=== PATIENT | male | born 1955 | race Caucasian/White ===

== ENCOUNTER 2019-11-02 12:42 | Outpatient (CLI) | payer OTHER, SELFPAY ==
--- NOTE | ~2019-11-02 | US_ITS ---
EXAMINATION: US carotid duplex BI DATE: 11/02/2019 13:15 INDICATION: Occlusion and stenosis of unspecified carotid artery. TECHNIQUE: Grayscale, color Doppler, and pulsed Doppler images of the cervical carotid arteries were obtained. The degree of vessel stenosis is placed in one of the following categories: normal, <50%, 5 0-69%, >=70% but less than near-occlusion, near-occlusion, or total occlusion. Note that percent sten osis relative to normal distal artery lumen diameter is indirectly measured from velocity measurement s as described by Froylan, et al. Radiology 2003; 229:340-346. COMPARISON: None. FINDINGS: RIGHT: The right common carotid artery (CCA) peak systolic velocity (PSV) is 87 cm/s. The right internal car otid artery (ICA) PSV is 73 cm/s. The right ICA end-diastolic velocity (EDV) is 14 cm/s. The right IC A/CCA PSV ratio is 0.8. Grayscale and color Doppler images yield an estimate of <50% diameter reducti on from plaque in the ICA. There is antegrade flow in the right vertebral artery. LEFT: The left CCA PSV is 133 cm/s. The left ICA PSV is 73 cm/s. The left ICA EDV is 21 cm/s. The left ICA/ CCA PSV ratio is 0.5. Grayscale and color Doppler images yield an estimate of <50% diameter reduction from plaque in the ICA. There is antegrade flow in the left vertebral artery. IMPRESSION: 1. <50% stenosis in the right internal carotid artery. 2. <50% stenosis in the left internal carotid artery. Reviewed, dictated and finalized at location A.
== END 2019-11-02 12:43 | disposition home or self-care (01) ==
PROVIDERS: PCP Family Medicine; Visit Provider Physician Assistant
DX: I65.23 Occlusion and stenosis of bilateral carotid arteries (principal)
CPT/HCPCS: 93880

== ENCOUNTER 2022-06-21 01:22 | Day surgery (SDC) | payer MEDICARE, SELFPAY ==
[2022-06-07 10:34] VITALS: BMI 28.0
[2022-06-21 08:04] VITALS: BP 131/95; PULSE 91; RESP 20; TEMP 36.3; O2SAT 98; BMI 27.1
[2022-06-21 08:15] LABS: Glucose Point of Care 172 mg/dl (65-105)
[2022-06-21] MEDS: LACTATED RINGERS 1,000 ML 150 ML IV CONT (08:15)
--- NOTE | 2022-06-21 08:39 | WPDANESEPPF ---
Anes - Initial Pre Proc Eval Procedure: Operation Date: 06/21/22 09:00 Proposed Procedures p Screening Colonoscopy - Brandon Ireland MD Date/Time: 06/21/22 08:39 Surgeon: Brandon Ireland MD Pre Op Diagnosis: hx colon polyps, neoplasm screening Patient Data Age: 67 Gender: M Height: 1.75 m Weight: 83.4 kg Last Vital Signs Temp 97.4 F L 06/21/22 08:04 Pulse 91 06/21/22 08:04 Resp 20 06/21/22 08:04 BP 131/95 H 06/21/22 08:04 Pulse Ox 98 06/21/22 08:04 O2 Del Method Room Air 06/21/22 08:04 Allergies Allergy/AdvReac Type Severity Reaction Status Date / Time No Known Allergies Allergy Verified 06/21/22 08:02 Home Medications Medication Instructions Recorded Confirmed Type atenolol 25 mg tablet 25 mg PO DAILY #90 tabs 04/03/22 06/07/22 Rx glipizide 5 mg tablet, extended See Rx Instructions .Route 04/03/22 06/07/22 Rx release 24 hr .COMPLEX #90 tabs losartan 100 1 tablet PO DAILY #90 tabs 04/03/22 06/07/22 Rx mg-hydrochlorothiazide 25 mg tablet empagliflozin 25 mg tablet 25 mg PO QAM #90 tabs 05/17/22 06/07/22 Rx (Jardiance) atorvastatin 10 mg tablet See Rx Instructions .Route 06/10/22 06/21/22 Rx .COMPLEX #90 tabs metformin 1,000 mg tablet See Rx Instructions .Route 06/10/22 06/21/22 Rx .COMPLEX #180 tabs Laboratory Tests 06/21/22 08:12 POC Capillary Glucose 172 mg/dl H mg/dl (65-105) Patient hx anesthesia problems: none Family hx anesthesia problems: none Results Review: All pre-operative results and documents have been reviewed as part of the pre-operative evaluation. [facility] Past Medical History Medical History Diabetes GERD (gastroesophageal reflux disease) History of colon polyps History of colonic polyps HLD (hyperlipidemia) Hypertension Family History Family History Mother Family history of diabetes mellitus in first degree relative Father Hypertension Family history of coronary artery disease Social History Social History Smoking status: Never smoker Second hand tobacco smoke exposure: No Alcohol intake: current Drinks per week: 1 Substance use: never Substance use type: does not use Living arrangements: alone Occupation/Education: occupation Gender identity (if verbalized by the patient): Male Anes - Eval Final PreProcedure Day of Procedure 06/21/22 08:39 Patient weight: normal Heart: regular rate and rhythm Lungs: clear to auscultation Airway: Mallampati scale class II Neurological: alert and oriented Last oral intake: >/= 8 hours ASA classification: III Emergent: no Anesthetic plan: proceed Anesthesia type and monitoring: general GIVS and standard monitoring Results Review: All pre-operative results and documents have been reviewed as part of the pre-operative evaluation. Informed Consent: The patient's anesthetic plan and its attendant risks and benefits were discussed with the patient/family/POA. Questions were solicited and answers provided to the satisfaction of the patient/family/POA.
--- NOTE | 2022-06-21 09:00 | PM.HPGS ---
History of Present Illness History of Present Illness Consent: Risks, benefits, and alternatives have been discussed and questions answered. Patient agrees to proceed with procedure. Chief complaint: hx colon polyps, neoplasm screening Narrative: Ignacio Foote is a 67 year old male Presents for screening colonoscopy. Patient's current weight appetite and bowel movements are normal. Patient denies abdominal pain. He has had no bleeding. Family history noncontributory. Patient reports having had previous colon polyps in 2015. Review of Systems Review of Systems: Review of systems noncontributory. [facility] Past Medical History Medical History Diabetes GERD (gastroesophageal reflux disease) History of colon polyps History of colonic polyps HLD (hyperlipidemia) Hypertension Family History Family History Mother Family history of diabetes mellitus in first degree relative Father Hypertension Family history of coronary artery disease Social History Social History Smoking status: Never smoker Second hand tobacco smoke exposure: No Alcohol intake: current Drinks per week: 1 Substance use: never Substance use type: does not use Living arrangements: alone Occupation/Education: occupation Gender identity (if verbalized by the patient): Male Meds Home Medications and Allergies Home Medications Medication Instructions Recorded Confirmed Type atenolol 25 mg tablet 25 mg PO DAILY #90 tabs 04/03/22 06/07/22 Rx glipizide 5 mg tablet, extended See Rx Instructions .Route 04/03/22 06/07/22 Rx release 24 hr .COMPLEX #90 tabs losartan 100 1 tablet PO DAILY #90 tabs 04/03/22 06/07/22 Rx mg-hydrochlorothiazide 25 mg tablet empagliflozin 25 mg tablet 25 mg PO QAM #90 tabs 05/17/22 06/07/22 Rx (Jardiance) atorvastatin 10 mg tablet See Rx Instructions .Route 06/10/22 06/21/22 Rx .COMPLEX #90 tabs metformin 1,000 mg tablet See Rx Instructions .Route 06/10/22 06/21/22 Rx .COMPLEX #180 tabs Allergies Allergy/AdvReac Type Severity Reaction Status Date / Time No Known Allergies Allergy Verified 06/21/22 08:02 Vital Signs Vital Signs - 24 hr 06/21/22 08:04 Temperature 97.4 F L Pulse Rate 91 Respiratory Rate 20 Blood Pressure 131/95 H Pulse Oximetry 98 Oxygen Delivery Room Air Exam Narrative: Physical exam reveals patient to be alert. Vital signs stable. HEENT exam is unremarkable. Patient is anicteric. Lungs are clear to auscultation and percussion. Heart is without murmur or extra sounds. Abdomen bowel sounds are present soft nontender with no organomegaly. Digital external rectal exam is normal. Assessment and Plan Assessment and plan (1) History of colon polyps: Code(s): Z86.010 - Personal history of colonic polyps Status: Acute Assessment and Plan: Patient has a history of colon polyps. Plan for colonoscopy now. Consider follow-up colonoscopy at 5 year intervals.
[2022-06-21] MEDS: SIMETHICONE ORAL SUSPENSION 20 MG/0.3 ML 30 ML BOTTLE 0.6 ML IRRIGATION (09:26)
[2022-06-21 09:28] VITALS: BP 104/71; PULSE 80; RESP 19; O2SAT 98
[2022-06-21 09:38] VITALS: BP 109/76; PULSE 73; RESP 19; O2SAT 98
[2022-06-21 09:48] VITALS: BP 120/80; PULSE 73; RESP 19; O2SAT 98
== END 2022-06-21 10:00 | disposition home or self-care (01) ==
PROVIDERS: PCP Family Medicine; Visit Provider Internal Medicine Gastroenterology
PROC: 0DJD8ZZ Inspection of Lower Intestinal Tract, Via Natural or Artificial Opening Endoscopic (ICD-10-PCS; CPT 45378; principal; 2022-06-21 09:00)
DX: Z12.11 Encounter for screening for malignant neoplasm of colon (principal); K64.8 Other hemorrhoids; Z86.010 Personal history of colon polyps; E11.9 Type 2 diabetes mellitus without complications; K21.9 Gastro-esophageal reflux disease without esophagitis; I10 Essential (primary) hypertension; E78.5 Hyperlipidemia, unspecified; Z79.84 Long term (current) use of oral hypoglycemic drugs
CPT/HCPCS: G0105; 82948; J2704; J7120

== ENCOUNTER 2022-10-23 09:30 | Outpatient (RCR) | payer MEDICARE, SELFPAY ==
[2022-09-26 11:13] VITALS: BMI 27.4
[2022-09-26 11:14] VITALS: BMI 27.4
== END 2022-12-23 23:59 | disposition home or self-care (01) ==
LOC: ANHDMC 09:30
PROVIDERS: PCP Family Medicine; Visit Provider Family Medicine
DX: E11.9 Type 2 diabetes mellitus without complications (principal); Z71.89 Other specified counseling; Z71.3 Dietary counseling and surveillance
CPT/HCPCS: 97802; G0108; G0109

== ENCOUNTER 2023-02-13 14:38 | Outpatient (RCR) | payer MEDICARE, SELFPAY | END 2023-05-05 12:29 | disposition home or self-care (01) | LOC: ANHDMC 14:38 | PROVIDERS: PCP Family Medicine; Visit Provider Family Medicine | DX: E11.65 Type 2 diabetes mellitus with hyperglycemia (principal); Z71.89 Other specified counseling | CPT/HCPCS: G0109 ==

== ENCOUNTER 2025-03-11 17:22 | Emergency (ER) | payer MEDICARE, SELFPAY ==
[2025-03-11 17:30] VITALS: BP 121/77; PULSE 78; RESP 20; TEMP 36.7; O2SAT 98
--- NOTE | 2025-03-11 17:44 | ED.EAR ---
HPI - Ear Problem General Chief complaint: Ear Stated complaint: bug in left ear Time Seen by Provider: 03/11/25 17:40 Source: patient Mode of arrival: ambulatory Limitations: no limitations History of Present Illness HPI Narrative: Earle is a 70 year old male patient presenting to the clinic today with c/o a lady bug in his left ear. States the bug flew into his ear this afternoon. Tried to remove it with a q-tip without success. No ear pain. Related Data Allergies Allergy/AdvReac Type Severity Reaction Status Date / Time No Known Allergies Allergy Verified 03/11/25 17:29 Review of Systems Review of Systems: Pertinent positives per HPI. Patient denies any fever, chills, rash, headache, visual changes, dizziness, cough, runny nose, sore throat, shortness of breath, chest pain, palpitations, nausea, vomiting, diarrhea, constipation, abdominal pain, or any urinary issues. [facility] Past Medical History Medical History History of colon polyps History of colonic polyps GERD (gastroesophageal reflux disease) HLD (hyperlipidemia) Hypertension Diabetes Family History Family History Mother Family history of diabetes mellitus in first degree relative Father Hypertension Family history of coronary artery disease Social History Social History Social History: Smoking status: Never smoker Second hand tobacco smoke exposure: No Alcohol intake: current Alcohol use details: Rarely Substance use: never Substance use type: does not use Do You Feel Safe in your Home?: Yes Lack of Transportation: No Lack of Food: Never True Current Housing: I Have Housing Concerned About Future Housing: No Difficulty Paying Gas/Electric Bills: No Currently Unemployed: No Education: Associate Degree Difficulty w/ Childcare or Family Care: No Living arrangements: alone Occupation/Education: occupation Gender identity (if verbalized by the patient): Male Sexual Orientation (if Verbalized by the Patient): Straight or Heterosexual Spiritual care concerns: No Comments At the time of my signature, I reviewed and agree with the nursing past medical, surgical, social, and family history. There is no relevant family history pertinent to the patient complaint. Exam Narrative: General: Well-developed, well nourished, in no apparent distress Head: Normocephalic, atraumatic Eyes: Pupils equally round and reactive to light bilaterally, EOM intact, sclera and conjunctive clear, no discharge, lids normal Ears: TMs intact and clear, lady bug in the left ear canal, ear irrigation performed ear canals clear, no drainage, grossly hearing normal. Nose: Nares patent, no discharge, no inflammation, no sinus tenderness. Mouth: Oropharynx without lesions or masses, good dentition, MMM. Neck: Supple, trachea midline, no enlargement of anterior or posterior cervical nodes, no thyroid masses or goiter palpable. Cardio: Regular rate and rhythm, s1 and s2 normal, no murmur appreciated. Resp: Clear to auscultation bilaterally anteriorly and posteriorly, no rhonchi, rales, wheezing or rubs Course Course Emergency Course: Portions of this record may have been created with voice recognition software. Level of Care: Express Care Visit Vital Signs Vital signs: Vital Signs Temperature 36.7 C 03/11/25 17:30 Pulse Rate 78 03/11/25 17:30 Respiratory Rate 20 03/11/25 17:30 Blood Pressure 121/77 03/11/25 17:30 Pulse Oximetry 98 03/11/25 17:30 Oxygen Delivery Room Air 03/11/25 17:30 Temperature 36.7 C 03/11/25 17:30 Pulse Rate 78 03/11/25 17:30 Respiratory Rate 20 03/11/25 17:30 Blood Pressure 121/77 03/11/25 17:30 Pulse Oximetry 98 03/11/25 17:30 Oxygen Delivery Room Air 03/11/25 17:30 Vital signs reviewed Procedures FB Removal Ear Foreign Body #1: Foreign Body Removal Date: 03/11/25 Location: ear canal (L) Foreign Body Suspected: insect TM intact pre-procedure: yes If Insect Suspected: ear canal instilled with other (ear irrigation with warm water ) Foreign Body Removed: yes Foreign Body Removal Technique: irrigation Tympanic Membrane Intact Post Procedure: Yes Patient Tolerated Procedure: well and no complications Complications: none Medical Decision Making MDM Narrative Medical decision making narrative: At the time of visit patient is resting comfortably on the exam table. Patient appears to be nontoxic. C/o a lady bug in his left ear. States the bug flew into his ear this afternoon. Tried to remove it with a q-tip without success. No ear pain. On exam patient has a lady bug in the left ear. Ear irrigation was performed successfully. Plan: Lady bug was removed from the left ear canal using ear irrigation. Patient tolerated well. Supportive measures were discussed with the patient and they voiced understanding discharge instructions and agrees to treatment plan. Return precautions reviewed. Differential Diagnosis Differential Diagnosis: Foreign body in the ear, otalgia, ear pain Vital Signs Vital Signs: Vital Signs Temperature 36.7 C 03/11/25 17:30 Pulse Rate 78 03/11/25 17:30 Respiratory Rate 20 03/11/25 17:30 Blood Pressure 121/77 03/11/25 17:30 Pulse Oximetry 98 03/11/25 17:30 Oxygen Delivery Room Air 03/11/25 17:30 Temperature 36.7 C 03/11/25 17:30 Pulse Rate 78 03/11/25 17:30 Respiratory Rate 20 03/11/25 17:30 Blood Pressure 121/77 03/11/25 17:30 Pulse Oximetry 98 03/11/25 17:30 Oxygen Delivery Room Air 03/11/25 17:30 Discharge Plan Discharge Clinical Impression: Foreign body in ear present on examination Patient Disposition: Home Condition: Stable Instructions: Antibiotic Form, Eye Foreign Body (ED) Additional Instructions: Lady bug was flushed out of your ear Follow-up as needed Patient Language: Bulgarian Prescriptions: No Action timolol 0.5 % drops 1 drp EACH EYE Q12H Qty: 15 0RF latanoprost 0.005 % drops 1 drp EACH EYE DAILY Qty: 7.5 0RF atorvastatin 10 mg tablet See Rx Instructions .ROUTE .COMPLEX Qty: 90 2RF Dose Instruction: TAKE 1 TABLET (10 MG) BY MOUTH DAILY Rx Instructions: TAKE 1 TABLET (10 MG) BY MOUTH DAILY metformin 1,000 mg tablet See Rx Instructions .ROUTE .COMPLEX Qty: 180 2RF Dose Instruction: TAKE 1 TABLET BY MOUTH TWICE DAILY Rx Instructions: TAKE 1 TABLET BY MOUTH TWICE DAILY atenolol 25 mg tablet 25 mg PO DAILY Qty: 90 2RF Jardiance 25 mg tablet See Rx Instructions .ROUTE .COMPLEX Qty: 90 2RF Dose Instruction: TAKE 1 TABLET EVERY MORNING Rx Instructions: TAKE 1 TABLET EVERY MORNING glipizide 5 mg tablet extended release 24hr See Rx Instructions .ROUTE .COMPLEX Qty: 90 2RF Dose Instruction: TAKE 1 TABLET DAILY Rx Instructions: TAKE 1 TABLET DAILY losartan-hydrochlorothiazide 100-25 mg tablet See Rx Instructions .ROUTE .COMPLEX Qty: 90 2RF Dose Instruction: TAKE 1 TABLET DAILY Rx Instructions: TAKE 1 TABLET DAILY Follow-up/Referrals: Cassius Mason MD [Primary Care Provider, [facility]] Time of Disposition: 17:46 Quality NIHSS Nursing Documentation ED NIHSS nursing documentation: reviewed/agree
== END 2025-03-11 17:47 | disposition home or self-care (01) ==
PROVIDERS: Emergency Provider Nurse Practitioner Family; PCP Family Medicine
DX: T16.2XXA Foreign body in left ear, initial encounter (principal); E78.5 Hyperlipidemia, unspecified; I10 Essential (primary) hypertension; E11.9 Type 2 diabetes mellitus without complications; W44.8XXA Other foreign body entering into or through a natural orifice, initial encounter
CPT/HCPCS: 99212; G0463